=== PATIENT | male | born 1940 | race Asian ===

== ENCOUNTER → 2022-10-19 | Outpatient (CLI) | payer MEDICARE, OTHER ==
[~2022-10-19] MED LIST: AMLO-257 PO; ASPI-556 PO; ATEN-72 PO; ATOR40TA28 PO; HYDR50TA36 PO
[2022-10-19 08:56] LABS: CALCIUM, TOTAL 9.2 mg/dL (8.8-10.5); CHOL/HDL RATIO 3.2 (4.2-7.3); CREATININE 1.5 mg/dL (0.60-1.30); POTASSIUM 4.3 mmol/L (3.5-5.1)
[2022-10-19 09:06] LABS: APPEARANCE,URINE CLEAR (CLEAR); BILIRUBIN,URINE NEGATIVE (NEGATIVE); GLUCOSE, URINE (UA) NEGATIVE (NEGATIVE); KETONES,URINE NEGATIVE (NEGATIVE); LEUKOCYTE ESTERASE ,URINE NEGATIVE (NEGATIVE); NITRATE,URINE NEGATIVE (NEGATIVE); OCCULT BLOOD,URINE NEGATIVE (NEGATIVE); PH,URINE 5.5 (5.0-8.0); PROTEIN,URINE TRACE mg/dL (NEGATIVE); SPECIFIC GRAVITIY, URINE 1.023 (1.003-1.030); UROBILINOGEN,URINE <=1.0 mg/dL (<=1.0)
== END | disposition home or self-care (01) ==
LOC: LABMN 08:11
PROVIDERS: ATTEND Internal Medicine Nephrology
DX: N18.30 Chronic kidney disease, stage 3 unspecified (principal); E78.5 Hyperlipidemia, unspecified
CPT/HCPCS: 80048; 80061; 81003

== ENCOUNTER → 2023-02-12 | Outpatient (CLI) | payer MEDICARE, OTHER ==
[2023-02-12 09:10] LABS: ALBUMIN 3.4 g/dL (3.4-5.0); BILIRUBIN,TOTAL 0.3 mg/dL (0.1-1.0); CALCIUM, TOTAL 8.9 mg/dL (8.8-10.5); CREATININE 1.27 mg/dL (0.60-1.30); TOTAL PROTEIN, SERUM 8.1 g/dL (6.4-8.2)
[2023-02-12 09:16] LABS: CREATININE,URINE 96.3 mg/dL (30.0-125.0)
[2023-02-12 09:25] LABS: CREATININE,SERUM FOR CRCL 1.27 mg/dL (0.60-1.30)
[2023-02-13 08:55] LABS: APPEARANCE,URINE CLEAR (CLEAR); BILIRUBIN,URINE NEGATIVE (NEGATIVE); COLOR,URINE LIGHT YELLOW (YELLOW); GLUCOSE, URINE (UA) NEGATIVE (NEGATIVE); KETONES,URINE NEGATIVE (NEGATIVE); LEUKOCYTE ESTERASE ,URINE NEGATIVE (NEGATIVE); NITRATE,URINE NEGATIVE (NEGATIVE); OCCULT BLOOD,URINE NEGATIVE (NEGATIVE); PH,URINE 5.5 (5.0-8.0); PROTEIN,URINE NEGATIVE (NEGATIVE); SPECIFIC GRAVITIY, URINE 1.019 (1.003-1.030); UROBILINOGEN,URINE <=1.0 mg/dL (<=1.0)
== END | disposition home or self-care (01) ==
LOC: LABMN 08:27
PROVIDERS: ATTEND Internal Medicine Nephrology
DX: N18.30 Chronic kidney disease, stage 3 unspecified (principal)
CPT/HCPCS: 80053; 81003; 81050; 82575; 84156; 84300

== ENCOUNTER → 2023-06-20 | Outpatient (CLI) | payer MEDICARE, OTHER ==
[2023-06-20 08:59] LABS: CREATININE,URINE RANDOM 272.5 mg/dL (30.0-125.0)
[2023-06-20 09:11] LABS: CALCIUM, TOTAL 9.3 mg/dL (8.8-10.5); CHOL/HDL RATIO 3.5 (4.2-7.3); CREATININE 1.52 mg/dL (0.60-1.30); POTASSIUM 4.5 mmol/L (3.5-5.1)
== END | disposition home or self-care (01) ==
LOC: LABMN 08:22
PROVIDERS: ATTEND Internal Medicine Nephrology
DX: R80.9 Proteinuria, unspecified (principal); E78.5 Hyperlipidemia, unspecified; N18.30 Chronic kidney disease, stage 3 unspecified
CPT/HCPCS: 80048; 80061; 82570; 84156

== ENCOUNTER → 2024-10-17 | Outpatient (CLI) | payer MEDICARE, OTHER ==
[2024-10-17 07:14] LABS: APPEARANCE,URINE CLEAR (CLEAR); GLUCOSE, URINE (UA) NEGATIVE (NEGATIVE); LEUKOCYTE ESTERASE ,URINE NEGATIVE (NEGATIVE); NITRATE,URINE NEGATIVE (NEGATIVE); OCCULT BLOOD,URINE NEGATIVE (NEGATIVE); SPECIFIC GRAVITIY, URINE 1.023 (1.003-1.030)
[2024-10-17 07:18] LABS: CALCIUM, TOTAL 9.1 mg/dL (8.8-10.5); CREATININE 1.47 mg/dL (0.60-1.30); GLOMERULAR FILTR. RATE CALC 46.0 mL/min (>60); GLUCOSE,RANDOM 104.0 mg/dL (70-110); SODIUM SERUM 145.0 mmol/L (136-145); UREA NITROGEN, BLOOD 27.0 mg/dL (7-18)
[2024-10-17 07:24] LABS: CHOL/HDL RATIO 2.9 (4.2-7.3); LDL CHOL (CALC.) 75.0 mg/dL (0-130)
== END | disposition home or self-care (01) ==
LOC: LABMN 06:43
PROVIDERS: ATTEND Internal Medicine Nephrology
DX: I12.9 Hypertensive chronic kidney disease with stage 1 through stage 4 chronic kidney disease, or unspecified chronic kidney disease (principal); N18.30 Chronic kidney disease, stage 3 unspecified; E78.5 Hyperlipidemia, unspecified
CPT/HCPCS: 80048; 80061; 81003